=== PATIENT | male | born 2000 | race Caucasian/White ===

== ENCOUNTER 2021-08-18 21:45 | Emergency (ER) | payer OTHER ==
[~2021-08-18] VITALS: Ht 177.8 cm; Wt 68.2 kg
[2021-08-18 21:49] VITALS: BP 121/69
[2021-08-18 21:58] LABS: COVID AG,FIA SOURCE NASAL SWAB
[2021-08-18 22:05] LABS: INFLUENZA TYPE A NEGATIVE FOR TYPE A (NEGATIVE); INFLUENZA TYPE B NEGATIVE FOR TYPE B (NEGATIVE)
[2021-08-18] MEDS ORDERED: AMOX1TAB16 PO (22:27)
[2021-08-18] MEDS ORDERED: IBUPROFEN 600 MG TABLET PO ONE (22:30)
[2021-08-18] MEDS ORDERED: AMOX TR/POT CLAV 875 MG/125 MG TABLET PO ONE (22:30)
== END 2021-08-18 22:50 | disposition home or self-care (01) ==
LOC: EMS 21:51
DX: H66.92 Otitis media, unspecified, left ear (principal); Z79.899 Other long term (current) drug therapy; Z20.822 Contact with and (suspected) exposure to COVID-19
CPT/HCPCS: 87430; 87804; 99283

== ENCOUNTER 2021-11-25 19:46 | Emergency (ER) | payer OTHER ==
[~2021-11-25] VITALS: Ht 177.8 cm; Wt 72.7 kg
[~2021-11-25 19:46] MED LIST: AMOX1TAB16 PO
[2021-11-25] MEDS ORDERED: CefTRIAXone SODIUM 1 GM/VIAL IM ONE (20:30)
[2021-11-25] MEDS ORDERED: DOXYCYCLINE HYCLATE 100 MG TABLET PO ONE (20:30)
[2021-11-25] MEDS ORDERED: LIDOCAINE/PF 1% 2 ML VIAL IM ONE (20:30)
[2021-11-25 20:55] LABS: COVID AG,FIA SOURCE NASOPHARYNGEAL
[2021-11-25 21:05] LABS: APPEARANCE,URINE CLEAR (CLEAR); BILIRUBIN,URINE NEGATIVE (NEGATIVE); GLUCOSE, URINE (UA) NEGATIVE (NEGATIVE); KETONES,URINE NEGATIVE (NEGATIVE); LEUKOCYTE ESTERASE ,URINE NEGATIVE (NEGATIVE); NITRATE,URINE NEGATIVE (NEGATIVE); OCCULT BLOOD,URINE NEGATIVE (NEGATIVE); PH,URINE 6.5 (5.0-8.0); PROTEIN,URINE NEGATIVE (NEGATIVE); SPECIFIC GRAVITIY, URINE 1.023 (1.003-1.030); UROBILINOGEN,URINE <=1.0 mg/dL (<=1.0)
[2021-11-25 21:22] LABS: RAPID GROUP A STREP NEGATIVE (NEGATIVE)
[2021-11-25 21:23] LABS: INFLUENZA TYPE A NEGATIVE FOR TYPE A (NEGATIVE); INFLUENZA TYPE B NEGATIVE FOR TYPE B (NEGATIVE)
[2021-11-25 22:15] VITALS: BP 130/70
[2021-11-27 08:06] LABS: HIV 1-2 SCREEN 4TH GEN W/RFLX Non Reactive (Non Reactive)
== END 2021-11-25 22:34 | disposition home or self-care (01) ==
LOC: EMS 19:50
DX: R30.0 Dysuria (principal); Z20.2 Contact with and (suspected) exposure to infections with a predominantly sexual mode of transmission; Z20.822 Contact with and (suspected) exposure to COVID-19
CPT/HCPCS: 99283; 87426; 81003; 87430; 87804; 36415; 87491; 87591; 96372; 87389; J0696; J3490

== ENCOUNTER 2023-07-09 12:29 | Emergency (ER) | payer OTHER ==
[~2023-07-09] VITALS: Ht 180.3 cm; Wt 79.5 kg
[2023-07-09 12:55] VITALS: TEMP 99.8
[2023-07-09 13:35] LABS: BASOPHILS % (AUTO) 0.2 % (0.0-2.0); EOSINOPHILS % (AUTO) 0.1 % (1.0-6.0); HEMATOCRIT 50.7 % (41-53); HEMOGLOBIN 17.4 g/dL (13.5-17.5); LYMPHOCYTES # (AUTO) 0.4 K/uL (1.0-4.8); LYMPHOCYTES % (AUTO) 4.4 % (22.0-44.0); MEAN CORPUSCULAR HEMOGLOBIN 29.7 pg (26.0-34.0); MEAN CORPUSCULAR HGB CONC 34.2 G/dL (31.0-37.0); MEAN CORPUSCULAR VOLUME 87 fL (80-100); MONOCYTES # (AUTO) 1.5 K/uL (0.1-1.0); MONOCYTES % (AUTO) 14.9 % (2.0-9.0); NEUTROPHILS # (AUTO) 7.9 K/uL (1.8-7.7); NEUTROPHILS % (AUTO) 80.4 % (40.0-70.0); PLATELET COUNT (AUTO) 176 K/uL (150-450); RED BLOOD CELL COUNT(AUTO) 5.86 MIL/uL (4.50-5.90); RED CELL DISTRIBUTION WIDTH 13.2 % (11.5-14.5); WHITE BLOOD COUNT (AUTO) 9.8 K/uL (4.5-11.0)
[2023-07-09 13:45] LABS: ANION GAP 16 mmol/L (8-16); CALCIUM, TOTAL 9.5 mg/dL (8.8-10.5); CARBON DIOXIDE 23 mmol/L (22-29); CHLORIDE 100 mmol/L (98-107); CREATININE 1.31 mg/dL (0.60-1.30); GLOMERULAR FILTR. RATE CALC > 60 mL/min (>60); GLUCOSE,RANDOM 124 mg/dL (70-110); POTASSIUM 4.4 mmol/L (3.5-5.1); SODIUM SERUM 138 mmol/L (136-145); UREA NITROGEN, BLOOD 11 mg/dL (7-18)
[2023-07-09 13:50] LABS: ALANINE AMINOTRANSFERASE 30 U/L (12-78); ALBUMIN 4.4 g/dL (3.4-5.0); ALKALINE PHOSPHATASE 120 U/L (46-116); ASPARTATE AMINOTRANSFERASE 22 U/L (15-37); BILIRUBIN,TOTAL 0.6 mg/dL (0.1-1.0); LIPASE 20 U/L (16-77); TOTAL PROTEIN, SERUM 9.1 g/dL (6.4-8.2)
[2023-07-09 13:58] LABS: COVID AG,FIA SOURCE NASAL SWAB
[2023-07-09 14:19] LABS: SARS-COV2 (COVID) ANTIGEN,FIA Negative (Negative)
[2023-07-09 14:25] LABS: INFLUENZA TYPE A NEGATIVE FOR TYPE A (NEGATIVE); INFLUENZA TYPE B NEGATIVE FOR TYPE B (NEGATIVE)
[2023-07-09] MEDS: SODIUM CHLORIDE 0.9% 1,000 ML IV ONE (14:50)
[2023-07-09] MEDS: ONDANSETRON HCL 4 MG/2 ML VIAL IVP ONE (14:50)
[2023-07-09] MEDS: MAG HYDROX/ALUMINUM HYD/SIMETH 30 ML SUSPENSION UDCUP PO ONE (14:50)
[2023-07-09] MEDS: FAMOTIDINE 20 MG/2 ML VIAL IVP ONE (14:51)
[2023-07-09] MEDS: KETOROLAC TROMETHAMINE 30 MG/ML VIAL IVP ONE (14:51)
[2023-07-09] MEDS ORDERED: SODIUM CHLORIDE 0.9% 100 ML ONE (15:18)
[2023-07-09] MEDS ORDERED: IOHEXOL 300 MG/ML 100 ML VIAL ONE (15:18)
[2023-07-09] MEDS ORDERED: ONDA-104 PO (16:20)
[2023-07-09 16:40] VITALS: BP 128/61; PULSE 84; RESP 18
== END 2023-07-09 17:22 | disposition home or self-care (01) ==
LOC: EMS 13:27
DX: A08.4 Viral intestinal infection, unspecified (principal); Z20.822 Contact with and (suspected) exposure to COVID-19
CPT/HCPCS: 99285; 74177; 96374; 96375; 96361; 87426; 80053; 83690; 85025; 87804; 36415; J3490; J1885; J2405; J7030; J7050; Q9967